=== PATIENT | female | born 1965 | race Hispanic/Latino ===

== ENCOUNTER 2019-04-24 12:30 | Outpatient (CLI) | payer OTHER ==
--- NOTE | 2019-04-24 16:04 | Mammography Report ---
DIGITAL SCREENING MAMMOGRAM WITH CAD, 04/24/2019 INDICATION: Routine screening mammography. TECHNIQUE: Digital bilateral 2D mammography was obtained in the craniocaudal and mediolateral obliq ue projections. This examination was interpreted with the benefit of Computer-Aided Detection analysi s. COMPARISON: None available. However, she indicated that she had a previous mammogram at either [facility]. FINDINGS: Breast Density: The breasts are heterogeneously dense, which may obscure small masses. Bilateral asymmetries require comparison with prior mammogram or additional imaging. No architectural distortion or suspicious calcifications. IMPRESSION: Comparison with a previous mammogram is recommended. We will attempt to obtain a prior ma mmogram for comparison. If we do not obtain a mammogram within 30 days, a revised report will be issu ed recommending a recall for additional imaging. Please be advised that the patient should not schedu le an appointment for return until adequate time (at least 2 weeks) has passed for us to obtain the p rior mammogram. Follow up recommendation: Obtain prior study for comparison Category 0: Incomplete. Needs additional imaging evaluation and/or prior mammograms for comparison. A "normal" or negative report should not discourage follow up or biopsy of a clinically significant f inding. A written summary of these findings will be mailed to the patient. The patient will be entered into a mammography reporting system which will generate a reminder letter for the patient's next appointmen t at the appropriate interval. The [employer] recommends yearly mammograms starting at age 40 and continuing as l sudheer as a woman is in good health. Breast MRI is recommended for women with an approximate 20-25% or greater lifetime risk of breast cancer, including women with a strong family history of breast or ova david cancer or who have been treated for Hodgkin's disease. Signer Name: Jayme Palomo MD Signed: 04/24/2019 4:00 PM Workstation Name: [id number]
--- NOTE | 2019-04-24 16:07 | Mammography Report ---
BONE DEXA. History: OSTEO SCREENING Procedure: 3 site bone densitometry performed on a Hologic scanner. Comparison: None Findings: The BMD of the lumbar spine is 0.938 gm/cm2 with a T-score of -1.0 and a Z-score of -0.1 . The bone mineral density (BMD) of the left femoral neck is 0.817 gm/cm2 with a T-score of -1.8 and a Z-score of -0.9. The BMD of the total left hip is 0.817 gm/cm2 with a T-score of -1.0 and a Z-score of -0.5. Impression: WHO Classification: Normal with average fracture risk based on lumbar spine measurements. WHO classification: Osteopenia with increased fracture risk based on left femoral neck measurements. The FRAX 10 year fracture probability for a major osteoporotic fracture is 6.3 %. The FRAX 10 year fracture probability for hip fracture is 0.7% . . Note:FRAX version 3.01. Fracture probability calculated for an untreated patient. Fracture probabilit y may be lower if the patient has received treatment. RECOMMENDATION: Clinical correlation and routine screening. Definitions: BMD = Bone Mineral Density T score = BMD related to mean peak bone mass of young adult ([place] expressed an standard deviation) Z score = Age-matched BMD expressed in SD World health organization (WHO) diagnostic criteria: Normal: T score greater than -1 SD. Osteopenia: T score between - SD and -2.4 SD. Osteoporosis: T score -2.5 SD or below Note: BMD is not the only risk factor for fracture; also consider factors such as the patient's age, risk of falling, previous osteoporotic fracture, family history of osteoporotic fractures, smoking st atus and low body weight. All treatment decisions require clinical judgment and consideration of individual patient factors inc luding patient preferences, comorbidities, previous drug use and risk factors not captured in the FRA X model (e.g. Frailty, falls, vitamin D deficiency, increased bone turnover, interval significant dec line in BMD). A more detailed DEXA Bone Densitometry report is available upon request. Signer Name: Jayme Palomo MD Signed: 04/24/2019 4:02 PM Workstation Name: [id number]
== END 2019-04-24 12:31 | disposition home or self-care (01) ==
LOC: MAMMO 12:30
PROVIDERS: ATTEND Nurse Practitioner Family
DX: Z12.31 Encounter for screening mammogram for malignant neoplasm of breast (principal); Z13.820 Encounter for screening for osteoporosis
CPT/HCPCS: 77067; 77080